=== PATIENT | female | born 1940 | race Caucasian/White ===

== ENCOUNTER → 2016-06-24 | Day surgery (SDC) | payer MEDICARE, MEDICAID ==
[~2016-06-24] VITALS: Ht 165.1 cm; Wt 76.2 kg
[~2016-06-24] MED LIST: ACETYLCHOLINE CHLORIDE INTRAOCULAR SOLUTION 1:100 ELECTROLYTE DILUENT IO ONE; BALANCED SALT IRRIG SOLN 15ML ONE; BALANCED SALT IRRIG SOLN COMB1 500ML OP NR; BUPIVACAINE HCL/PF 0.75% (7.5MG/ML) 10ML ONE; CARB1TAB21 PO; CHOL100046 PO; CIPROFLOXACIN 0.3% OPHTH SOLN 2.5ML ONE; CYAN50003 PO; CYCLOPENTOLATE HCL 1% OPHTH DROPS 2ML ONE; CYCLOPENTOLATE HCL 1% OPHTH DROPS 2ML RIGHTEYE ONE; DEXAMETHASONE 4MG/ML 1ML VIAL ONE; FENTANYL CITRATE/PF 50MCG/ML 2ML VIAL ONE; HYALURONATE SODIUM 14 MG/ML 0.85ML SYRINGE IO ONE; LACTATED RINGERS 1,000 ML IV SCH; LEVO75TA7 PO; LIDOCAINE HCL 2%/EPINEPHRINE 1:100,000 20 ML VIAL INFIL ONE; LIDOCAINE HCL/PF 2% 20 MG/ML 10ML VIAL ONE; LOSA50TA20 PO; MIDAZOLAM HCL 2 MG/2 ML VIAL ONE; MORPHINE SULFATE 2 MG/ML CPJ (NOT FOR IM USE) IV PRN; NEO/POLYMYX B SULF/DEXAMETH OPHTH OINT 3.5GM ONE; ONDANSETRON HCL 4MG/2ML VIAL IV PRN; ONDANSETRON HCL 4MG/2ML VIAL ONE; PARO-41; PARO40TA75 PO; PHENYLEPHRINE HCL 10% OPHTH DROPS 5ML ONE; PHENYLEPHRINE HCL 10% OPHTH DROPS 5ML RIGHTEYE ONE; PREDNISOLONE ACETATE 1% OPHTH DROPS 1ML ONE; PROPOFOL 200MG/20ML VIAL IV ONE; TAMS0.4C31 PO; TETRACAINE 0.5% OPHTH DROPS 4ML ONE; TROPICAMIDE 1% OPHTH DROPS 15ML ONE; TROPICAMIDE 1% OPHTH DROPS 15ML RIGHTEYE ONE; VIT D PO
== END | disposition home or self-care (01) ==
LOC: OR 08:16
PROVIDERS: ATTEND Ophthalmology
DX: H25.89 Other age-related cataract (principal); I10 Essential (primary) hypertension; E03.9 Hypothyroidism, unspecified; M81.0 Age-related osteoporosis without current pathological fracture; G20 Parkinson's disease; F32.9 Major depressive disorder, single episode, unspecified
CPT/HCPCS: 66984; 67005; J1100; J2250; J2405; J3010; J3490; J7120; V2632; J2704

== ENCOUNTER 2016-10-31 09:00 | Inpatient (IN) | payer MEDICARE, OTHER ==
[~2016-10-31] VITALS: Ht 165.1 cm; Wt 75.7 kg
[~2016-10-31 09:00] MED LIST changes: -ACETYLCHOLINE CHLORIDE INTRAOCULAR SOLUTION 1:100 ELECTROLYTE DILUENT IO ONE; -BALANCED SALT IRRIG SOLN 15ML ONE; -BALANCED SALT IRRIG SOLN COMB1 500ML OP NR; -BUPIVACAINE HCL/PF 0.75% (7.5MG/ML) 10ML ONE; -CIPROFLOXACIN 0.3% OPHTH SOLN 2.5ML ONE; -CYCLOPENTOLATE HCL 1% OPHTH DROPS 2ML ONE; -CYCLOPENTOLATE HCL 1% OPHTH DROPS 2ML RIGHTEYE ONE; -DEXAMETHASONE 4MG/ML 1ML VIAL ONE; -FENTANYL CITRATE/PF 50MCG/ML 2ML VIAL ONE; -HYALURONATE SODIUM 14 MG/ML 0.85ML SYRINGE IO ONE; -LACTATED RINGERS 1,000 ML IV SCH; -LIDOCAINE HCL 2%/EPINEPHRINE 1:100,000 20 ML VIAL INFIL ONE; -LIDOCAINE HCL/PF 2% 20 MG/ML 10ML VIAL ONE; -MIDAZOLAM HCL 2 MG/2 ML VIAL ONE; -MORPHINE SULFATE 2 MG/ML CPJ (NOT FOR IM USE) IV PRN; -NEO/POLYMYX B SULF/DEXAMETH OPHTH OINT 3.5GM ONE; -ONDANSETRON HCL 4MG/2ML VIAL IV PRN; -ONDANSETRON HCL 4MG/2ML VIAL ONE; -PARO-41; -PHENYLEPHRINE HCL 10% OPHTH DROPS 5ML ONE; -PHENYLEPHRINE HCL 10% OPHTH DROPS 5ML RIGHTEYE ONE; -PREDNISOLONE ACETATE 1% OPHTH DROPS 1ML ONE; -PROPOFOL 200MG/20ML VIAL IV ONE; -TETRACAINE 0.5% OPHTH DROPS 4ML ONE; -TROPICAMIDE 1% OPHTH DROPS 15ML ONE; -TROPICAMIDE 1% OPHTH DROPS 15ML RIGHTEYE ONE; -VIT D PO
[2016-10-31] MEDS ORDERED: SODIUM CHLORIDE 0.9% 1,000 ML IV ONE (09:11)
[2016-10-31] MEDS ORDERED: ONDANSETRON HCL 4MG/2ML VIAL IV STA (09:11)
[2016-10-31 09:25] LABS: BASOPHILS % 0.4 % (0.0-2.0); EOSINOPHILS % 0.8 % (0.0-5.0); HEMATOCRIT. 40.1 % (36.0-48.0); HEMOGLOBIN. 12.9 g/dL (12.0-16.0); LYMPHOCYTES % 21.5 % (20.0-50.0); MEAN CORPUSCULAR HEMOGLOBIN 25.4 pg (28.0-32.0); MEAN CORPUSCULAR VOLUME 78.5 fL (81.0-99.0); MEAN PLATELET VOLUME 6.8 fl (7.4-10.4); MONOCYTES % 13.2 % (2.0-8.0); NEUTROPHILS % 64.1 % (40.0-76.0); PLATELET 243 x1000/uL (130-400); RED CELL DISTRIBUTION WIDTH 17.1 % (11.6-14.6)
[2016-10-31 09:35] LABS: INR 1.1; PARTIAL THROMBOPLASTIN TIME 29.7 sec (23.4-31.0); PROTHROMBIN TIME 11.2 sec (9.4-11.6)
[2016-10-31 09:40] LABS: CARBON DIOXIDE 28 mEq/L (21-32); CHLORIDE 105 mEq/L (98-107)
[2016-10-31 09:45] LABS: TROPONIN I < 0.02 ng/mL (0.00-0.04)
[2016-10-31] MEDS ORDERED: POTASSIUM CHLORIDE 20MEQ TABLET SR PO ONE (10:00)
[2016-10-31 12:00] VITALS: BP 123/62
[2016-10-31] MEDS ORDERED: LORAZEPAM 2MG/ML CPJ IV NR (12:00)
[2016-10-31] MEDS ORDERED: IPRATROPIUM/ALBUTEROL 0.5-3(2.5)MG/3ML NEB INH PRN (13:00)
[2016-10-31] MEDS ORDERED: ACETAMINOPHEN 325MG TABLET PO PRN (13:00)
[2016-10-31] MEDS ORDERED: HYDROCODONE/ACETAMINOPHEN 5/325MG TABLET PO PRN (13:00)
[2016-10-31] MEDS ORDERED: CLONIDINE 0.1MG TABLET PO PRN (13:00)
[2016-10-31] MEDS ORDERED: ONDANSETRON HCL 4MG/2ML VIAL IV PRN (13:00)
[2016-10-31 13:13] VITALS: BP 123/62
[2016-10-31] MEDS ORDERED: METRONIDAZOLE 500 MG PREMIX 100 ML IV SCH (14:00)
[2016-10-31] MEDS: METRONIDAZOLE 500MG TABLET PO SCH ×2 (14:40→21:40)
[2016-10-31] MEDS: SODIUM CHLORIDE 0.45% 1,000 ML IV SCH (14:40)
[2016-10-31] MEDS: ENOXAPARIN 40MG/0.4ML SYR SUBCUT SCH (15:29)
[2016-10-31] MEDS: LEVOFLOXACIN 500MG PREMIX 100 ML IV SCH (15:29)
[2016-10-31 16:00] VITALS: BP 134/78
[2016-10-31] MEDS ORDERED: DEXTROSE 50% WATER 50ML SYRINGE IV PRN (16:15)
[2016-10-31] MEDS: BLOOD SUGAR DIAGNOSTIC STRIP TEST SCH ×2 (16:59→20:38)
[2016-10-31] MEDS: INSULIN LISPRO 100 UNITS/ML SUBCUT SCH ×2 (16:59→20:38)
[2016-10-31 17:30] LABS: CHLORIDE 104 mEq/L (98-107)
[2016-10-31 17:35] LABS: CARBON DIOXIDE 28 mEq/L (21-32)
[2016-10-31 20:00] VITALS: BP 117/63
[2016-10-31 20:32] LABS: CLARITY URINE CLOUDY (CLEAR); COLOR URINE DARK YELLOW (YELLOW); GLUCOSE URINE NEGATIVE (NEGATIVE); KETONES URINE 1+ (NEGATIVE); LEUKOCYTE ESTERASE URINE 1+ (NEGATIVE); NITRITE URINE NEGATIVE (NEGATIVE); OCCULT BLOOD URINE NEGATIVE (NEGATIVE); PROTEIN URINE TRACE (NEGATIVE); SPECIFIC GRAVITY URINE 1.021 (1.005-1.030); UROBILINOGEN URINE 0.2 E.U./dL (0.2-1.0)
[2016-11-01] VITALS (7 sets, daily range): BP systolic 118–165; BP diastolic 55–77
[2016-11-01] MEDS: SODIUM CHLORIDE 0.45% 1,000 ML IV SCH ×2 (03:34→17:46)
[2016-11-01] MEDS: METRONIDAZOLE 500MG TABLET PO SCH ×3 (06:16→22:11)
[2016-11-01] MEDS: BLOOD SUGAR DIAGNOSTIC STRIP TEST SCH ×4 (06:28→21:00)
[2016-11-01 06:31] LABS: BASOPHILS % 0.4 % (0.0-2.0); EOSINOPHILS % 1.7 % (0.0-5.0); HEMATOCRIT. 35.1 % (36.0-48.0); HEMOGLOBIN. 11.3 g/dL (12.0-16.0); LYMPHOCYTES % 21.7 % (20.0-50.0); MEAN CORPUSCULAR HEMOGLOBIN 25.3 pg (28.0-32.0); MEAN CORPUSCULAR VOLUME 78.6 fL (81.0-99.0); MEAN PLATELET VOLUME 7.1 fl (7.4-10.4); NEUTROPHILS % 62.2 % (40.0-76.0); PLATELET 225 x1000/uL (130-400); RED BLOOD CELL COUNT 4.46 mill/uL (4.2-5.4); RED CELL DISTRIBUTION WIDTH 16.9 % (11.6-14.6)
[2016-11-01] MEDS: INSULIN LISPRO 100 UNITS/ML SUBCUT SCH ×4 (07:50→21:00)
[2016-11-01 08:21] LABS: T4 FREE 1.13 ng/dL (0.76-1.46)
[2016-11-01] MEDS: ENOXAPARIN 40MG/0.4ML SYR SUBCUT SCH (13:48)
[2016-11-01] MEDS ORDERED: FURO20TA4 PO (13:51)
[2016-11-01] MEDS: LEVOFLOXACIN 500MG PREMIX 100 ML IV SCH (13:56)
[2016-11-01 18:07] LABS: CARBON DIOXIDE 29 mEq/L (21-32); CHLORIDE 107 mEq/L (98-107)
[2016-11-01] MEDS ORDERED: POTASSIUM CHLORIDE 20MEQ TABLET SR PO NR (18:30)
[2016-11-02] VITALS: BP 139/64
[2016-11-02 04:00] VITALS: BP 132/58
[2016-11-02] MEDS: SODIUM CHLORIDE 0.45% 1,000 ML IV SCH (05:17)
[2016-11-02] MEDS: METRONIDAZOLE 500MG TABLET PO SCH (06:08)
[2016-11-02] MEDS: INSULIN LISPRO 100 UNITS/ML SUBCUT SCH ×2 (07:50→12:50)
[2016-11-02] MEDS: BLOOD SUGAR DIAGNOSTIC STRIP TEST SCH ×2 (07:52→13:11)
[2016-11-02 08:00] VITALS: BP 140/60
[2016-11-02 11:40] LABS: CHLORIDE 108 mEq/L (98-107)
[2016-11-02 11:45] LABS: CARBON DIOXIDE 29 mEq/L (21-32)
[2016-11-02 12:00] VITALS: BP 164/79
[2016-11-02] MEDS ORDERED: POTASSIUM CHLORIDE 20MEQ TABLET SR PO SCH (15:15)
== END 2016-11-02 15:20 | disposition home or self-care (01) | DRG 391 ==
LOC: ER 09:47 → 6EST 10:02 → EDBEDREQ 10:04 → EDBEDREQSVC 10:04 → ENRESERV 10:35 → EDBEDREQ 10:37
PROVIDERS: ADMIT Internal Medicine; ATTEND Internal Medicine
DX: K52.9 Noninfective gastroenteritis and colitis, unspecified (principal); R65.11 Systemic inflammatory response syndrome (SIRS) of non-infectious origin with acute organ dysfunction; G20 Parkinson's disease; N39.0 Urinary tract infection, site not specified; E87.6 Hypokalemia; E86.0 Dehydration; E11.9 Type 2 diabetes mellitus without complications; I10 Essential (primary) hypertension; F02.80 Dementia in other diseases classified elsewhere, unspecified severity, without behavioral disturbance, psychotic disturbance, mood disturbance, and anxiety; Z87.442 Personal history of urinary calculi
CPT/HCPCS: 36415; 71010; 74176; 80048; 80053; 80061; 81001; 82962; 83605; 83690; 83735; 83880; 84439; 84443; 84484; 85025; 85610; 85730; 87040; 87077; 87086; 87186; 87493; 93005; 96361; 96374; 99285; C1893; J1650; J1956; J2060; J2405; J7030

== ENCOUNTER 2021-01-22 16:07 | Emergency (ER) | payer MEDICARE, MEDICAID ==
[~2021-01-22] VITALS: Ht 167.6 cm; Wt 70.5 kg
[~2021-01-22 16:07] MED LIST changes: +CARBIDOPA-LEVODOPA PO; +FURO20TA4 PO; +GABA-529 PO; +IMOD MT; -LOSA50TA20 PO; +LOSA50TA41 PO
[2021-01-22 18:03] LABS: CLARITY URINE CLOUDY (CLEAR); COLOR URINE YELLOW (YELLOW); KETONES URINE NEGATIVE (NEGATIVE); LEUKOCYTE ESTERASE URINE 1+ (NEGATIVE); NITRITE URINE POSITIVE (NEGATIVE); OCCULT BLOOD URINE TRACE (NEGATIVE); PROTEIN URINE TRACE (NEGATIVE); SPECIFIC GRAVITY URINE 1.009 (1.005-1.030)
[2021-01-22 18:25] LABS: BASOPHILS % 0.5 % (0.0-2.0); HEMATOCRIT. 35.8 % (36.0-48.0); HEMOGLOBIN. 11.5 g/dL (12.0-16.0); LYMPHOCYTES % 9.4 % (20.0-50.0); MEAN CORPUSCULAR VOLUME 74.9 fL (81.0-99.0); MEAN PLATELET VOLUME 6.9 fl (7.4-10.4); MONOCYTES % 12.1 % (2.0-8.0); PLATELET 267 x1000/uL (130-400); RED BLOOD CELL COUNT 4.78 mill/uL (4.2-5.4); RED CELL DISTRIBUTION WIDTH 18.1 % (11.6-14.6)
[2021-01-22 18:30] LABS: CHLORIDE 106 mEq/L (98-107)
[2021-01-22] MEDS ORDERED: CEFTRIAXONE 1 G PREMIX 50 ML IV ONE (19:15)
[2021-01-22] MEDS ORDERED: CIPR-263 MT (20:41)
[2021-01-22 20:58] VITALS: BP 137/64
== END 2021-01-22 21:01 | disposition home or self-care (01) ==
LOC: ER 16:07
DX: N39.0 Urinary tract infection, site not specified (principal); I10 Essential (primary) hypertension; G20 Parkinson's disease; E78.00 Pure hypercholesterolemia, unspecified; R00.0 Tachycardia, unspecified; Z79.899 Other long term (current) drug therapy
CPT/HCPCS: 36415; 71045; 80053; 81003; 83880; 84484; 85025; 93005; 96365; 99285; J0696